=== PATIENT | male | born 1985 | race African-American/Black ===

== ENCOUNTER 2020-08-19 02:15 | Emergency (ER) | payer OTHER ==
[~2020-08-19] VITALS: Ht 198.1 cm; Wt 99.5 kg
[2020-08-19 02:47] VITALS: BP 121/73
[2020-08-19] MEDS ORDERED: KETOROLAC TROMETHAMINE 60 MG/2 ML VIAL IM ONE (03:00)
[2020-08-19] MEDS ORDERED: HYDROCODONE/ACETAMINOPHEN 5-325 MG TABLET PO ONE (03:00)
== END 2020-08-19 04:04 | disposition home or self-care (01) ==
LOC: EMS 02:22
DX: M25.512 Pain in left shoulder (principal); V43.52XA Car driver injured in collision with other type car in traffic accident, initial encounter; Y93.89 Activity, other specified; Y92.488 Other paved roadways as the place of occurrence of the external cause; Y99.8 Other external cause status
CPT/HCPCS: 73030; 90471; 99283; J1885

== ENCOUNTER 2020-08-20 12:21 | Emergency (ER) | payer OTHER ==
[~2020-08-20] VITALS: Ht 198.1 cm; Wt 100.0 kg
[2020-08-20] MEDS ORDERED: KETOROLAC TROMETHAMINE 30 MG/ML VIAL IM ONE (14:00)
[2020-08-20 14:31] VITALS: BP 125/70
== END 2020-08-20 14:33 | disposition home or self-care (01) ==
LOC: EMS 12:22
DX: M25.512 Pain in left shoulder (principal)
CPT/HCPCS: 96372; 99283; J1885